=== PATIENT | female | born 1935 | race Caucasian/White ===

== ENCOUNTER 2018-03-16 22:11 | Observation (INO) | payer OTHER ==
--- NOTE | 2018-03-16 22:24 | PDOC ---
History of Present Illness - General History Source: Patient - History of Present Illness Initial Comments: 03/16/18 22:19 The patient is an 81 year old female with a PMH of HTN, Breast CA and 6 month h/ o of forgetfulness BIBEMS with son for a c/o fall with AMS. Son in law and daughter @ bedside assist in history. State patient has been complaining of feeling lightheaded for 1 week. This morning patient called daughter and stated she fell overnight. Patient told daughter she fell last night while getting up from bed to get some water. Patient states knocked over a lamp and spilled water and was able to clean up the spill and went back to bed. Patient' s daughter took patient to urgent care where patient was told to drink more water. Patient was then went to son in law's house and was at baseline. When son in law dropped patient at home, patient suddenly started to fall backwards, son in law caught patient. Patient was noted to have upper extremity and facial tremors and was unable to self-identify (baseline). Son in law called 911. En route patient returned to baseline. At presentation patient has no active medical complaints besides a 1 week h/o of lightheadedness. Patient denies chest pain, shortness of breath. Patient denies abdominal pain, nausea/vomiting, diarrhea/constipation, dysuria/ hematuria. Patient numbness, tingling. NKDA Surgical: Breast CA resection Social: denies toxic habits PMD: Dr. Ann As per EMR, patient has not been evaluated at our facility on prior occasion. <Sydnie Garay - Last Filed: 03/17/18 20:07> <Cherry Toney - Last Filed: 03/18/18 00:06> - General Stated Complaint: SICK Time Seen by Provider: 03/16/18 22:13 Past History <Sydnie Garay - Last Filed: 03/17/18 20:07> <Cherry Toney - Last Filed: 03/18/18 00:06> - Past Medical History Allergies/Adverse Reactions: Allergies Allergy/AdvReac Type Severity Reaction Status Date / Time No Known Allergies Allergy Verified 03/16/18 23:05 Home Medications: Ambulatory Orders Amlodipine Besylate [Norvasc -] 5 mg PO DAILY 03/17/18 Losartan/Hydrochlorothiazide [Losartan-Hctz 100-25 mg Tab] 1 tab PO DAILY *Physical Exam - Vital Signs Last Vital Signs Temp Pulse Resp BP Pulse Ox 97.6 F 91 H 18 122/62 96 03/17/18 22:00 03/17/18 22:00 03/17/18 22:00 03/17/18 22:00 03/17/18 09:00 - Physical Exam Comments: 03/18/18 00:05 SEE BOTTOM OF CHART FOR P.E. <Cherry Toney - Last Filed: 03/18/18 00:06> Moderate Sedation - Procedure Monitoring Vital Signs: Procedure Monitoring Vital Signs Temperature 97.6 F 03/17/18 22:00 Pulse Rate 91 H 03/17/18 22:00 Respiratory Rate 18 03/17/18 22:00 Blood Pressure 122/62 03/17/18 22:00 O2 Sat by Pulse Oximetry (%) 96 03/17/18 09:00 <Cherry Toney - Last Filed: 03/18/18 00:06> Heart Score/ECG Review - History History: Slightly suspicious - Electrocardiogram EKG: Normal - Age Age: >/= 65 - Risk Factors Risk Factors Heart Score: Yes Hx Hypertension Based on the list above the patient has:: 1-2 risk factors - Troponin Troponin: </= normal limit (NSR HR 98, with RBB (c/w previous ECG in 2012); no MULUGETA/STD/TWI) - Score Heart Score - Total: 3 <Sydnie Garay - Last Filed: 03/17/18 20:07> ED Treatment Course - LABORATORY CBC & Chemistry Diagram: 03/16/18 22:45 03/16/18 22:45 - RADIOLOGY Radiology Studies Ordered: Category Date Time Status CHEST X-RAY PORTABLE* [RAD] Stat Radiology 03/16/18 22:15 Ordered <Sydnie Garay - Last Filed: 03/17/18 20:07> - LABORATORY CBC & Chemistry Diagram: 03/17/18 06:00 03/17/18 06:00 - ADDITIONAL ORDERS Additional order review: 03/16/18 22:45 Blood Culture - Preliminary Blood - Peripheral Venous NO GROWTH OBTAINED AFTER 24 HOURS, INCUBATION TO CONTINUE FOR 4 DAYS. 03/16/18 22:40 Blood Culture - Preliminary Blood - Peripheral Venous NO GROWTH OBTAINED AFTER 24 HOURS, INCUBATION TO CONTINUE FOR 4 DAYS. 03/16/18 22:45 RBC 4.42 MCV 83.3 MCHC 33.5 RDW 12.9 MPV 8.0 Neutrophils % 87.5 H Lymphocytes % 2.1 L Monocytes % 9.9 Eosinophils % 0.3 Basophils % 0.2 - RADIOLOGY Radiology Studies Ordered: Category Date Time Status HEAD CT WITHOUT CONTRAST [CT] Stat CT Scan 03/16/18 22:14 Completed - Medications Given in the ED: ED Medications Discontinued Medications Generic Name Dose Route Start Last Admin Trade Name Freq PRN Reason Stop Dose Admin Aspirin 324 mg 03/17/18 01:46 03/17/18 02:31 Asa - PO 03/17/18 01:47 324 mg ONCE ONE Administration Folic Acid 1 mg/ Thiamine HCl 1,000 mls @ 125 mls/hr 03/17/18 00:01 03/17/18 00:27 100 mg/ Multivitamins/Minerals IVPB 03/17/18 08:00 125 mls/hr 10 ml/ Sodium Chloride ONCE ONE Administration Sodium Chloride 1,000 mls @ 50 mls/hr 03/17/18 02:00 03/17/18 02:31 Normal Saline - IV 50 mls/hr ASDIR FELY Administration Potassium Chloride 10 meq in 100 mls @ 100 mls/hr 03/17/18 13:15 03/17/18 16: 00 Potassium Chloride 10 Meq Premix Ivpb - IVPB 03/17/18 15:14 100 mls/hr Q60M FELY Administration Rosuvastatin Calcium 40 mg 03/17/18 02:15 03/17/18 02:31 Crestor - PO 03/17/18 02:16 Not Given ONCE ONE Sodium Chloride 1,000 ml 03/16/18 22:49 03/16/18 23:00 Normal Saline - IV 03/16/18 22:50 1,000 ml ONCE ONE Administration <Cherry Toney - Last Filed: 03/18/18 00:06> Medical Decision Making - Medical Decision Making 03/16/18 22:24 81 year old female BIBEMS for resolved AMS and s/p fall. VS unremarkable. Patient transferred to CT scan. Frontal diagnosis: TIA, electrolyte abnormality , r/o ACS, hypothyroidism, dehydration. Will obtain head CT as well as AMS labs. Reassess. 03/16/18 23:26 On exam, patient has sacral tenderness My read of Head CT shows no acute brain bleed/no ischemia. Patient resting comfortably Na 128 - will administer additional 1 L IV NS - no seizures, possibly confusion 2/2 to hyponatremia BNP 1572 - no previous BNP in system Troponin (-) ECG non-ischemic as documented in ECG section of EMR. 03/17/18 01:[address] negative My read of sacral XR shows retained stool w/o any L/S fracture VSS 03/17/18 01:24 Case d/w Dr. Cavazos, patient admitted to [facility] obs for further evaluation including cardiac and neurologic evaluation. Repeat Na pending 2 L IV NS Clinical Impression: AMS 2/2 Hyponatremia vs. TIA - more likely TIA given resolution of symptoms <Sydnie Garay - Last Filed: 03/17/18 20:07> *DC/Admit/Observation/Transfer - Discharge Dispostion Decision to Admit order: Yes <Sydnie Garay - Last Filed: 03/17/18 20:07> <Cherry Toney - Last Filed: 03/18/18 00:06> Diagnosis at time of Disposition: Fall - Discharge Dispostion Condition at time of disposition: Fair Addendum entered and electronically signed by Sydnie Garay, RESIDENT 03/17/18 20:11: Progress Note - Progress Note Progress Note: General: awake, verbal HEENT: No visible lesions/hematoma, no periorbital ecchymosis, no mastoid ecchymosis, no bulging/erythematous TM CV: S1/S2, no edema, no JVD Respiratory: CLTA B/L, no wheeze/crackles Integumentary: no ulcers/rash Neuro: no focal neurologic deficit noted on exam, patient A&O x1 (baseline)
--- NOTE | 2018-03-16 22:37 | PDOC ---
Attending Attestation - [facility] HPI: 03/16/18 23:12 The patient is a 82 year old female, with a significant past medical history of HTN, who presents to the emergency department s/p near syncope. As per patient s son, she was evaluated in urgent care earlier today and was discharged with a negative workup after a fall yesterday and complaints of weakness/dizziness for a week. Patients son notes she came over to his house after not eating much during the day and had an episode of near syncope at which time he caught him before hitting the floor. The episode occurred at 9:15pm. While in the ER patient is alert and oriented to person, place, and time. She denies recent fevers, chills, or headache. She denies recent nausea, vomit, diarrhea or constipation. She denies recent dysuria, frequency, urgency or hematuria. She denies recent chest pain or shortness of breath. Social history: Nonsmoker. Denies EtOH use and recreational drug use. Primary Care Physician: Dr. Ann - Physicial Exam PE: 03/16/18 23:12 GENERAL: Awake, alert, and fully oriented, in no acute distress HEAD: No signs of trauma EYES: PERRLA, EOMI, sclera anicteric, conjunctiva clear +ENT: L ear increased cerumen, Auricles normal inspection, hearing grossly normal, nares patent, oropharynx clear without exudates. Moist mucosa NECK: Normal ROM, supple, no lymphadenopathy, JVD, or masses LUNGS: Breath sounds equal, clear to auscultation bilaterally. No wheezes, and no crackles HEART: Regular rate and rhythm, normal S1 and S2, no murmurs, rubs or gallops ABDOMEN: Soft, nontender, normoactive bowel sounds. No guarding, no rebound. No masses EXTREMITIES: Normal range of motion, no edema. No clubbing or cyanosis. No cords, erythema, or tenderness NEUROLOGICAL: Alert, awake, appropriate. Cranial nerves 2-12 intact. No deficits to light touch and temperature in face, upper extremities and lower extremities. No motor deficits in the in face, upper extremities and lower extremities. No pronator drift. Normoreflexic in the upper and lower extremities. Normal speech. Toes are down-going bilaterally. Gait is normal without ataxia. SKIN: Warm, Dry, normal turgor, no rashes or lesions noted. <Desi Scruggs - Last Filed: 03/16/18 23:12> - Resident Resident Name: Sydnie Garay - ED Attending Attestation I have performed the following: I have examined & evaluated the patient, The case was reviewed & discussed with the resident, I agree w/resident's findings & plan - Medical Decision Making 03/16/18 22:55 Patient Name: ANAND KAUR THIS IS A PRELIMINARY REPORT FROM [facility]AGING SCREW MACHINE OPERATOR [facility] TYPE EXAM: CT Head wo IMAGES: 138 EXAM DATE AND TIME: 2018-03-16 22:22:16 HISTORY: 81 year old woman: Acute stroke. COMPARISON: None TECHNIQUE: Non-contrast axial images were obtained. Coronal and sagittal images were also generated. FINDINGS: The sulci and ventricles are mildly prominent suggesting mild age related involutional changes. There are no intracranial hemorrhages, extra-axial fluid collections or evidence of an intra-axial mass lesion. There is no clear evidence of chronic ischemic demyelination. Cerebral chambers/white matter differentiation is preserved, without clear evidence of an acute ischemic lesion at this time. Orbital and petrous structures, cerebellopontine angles, and posterior fossa appear unremarkable. The paranasal and mastoid sinuses are clear. IMPRESSION: Mild age related involutional changes. The study is otherwise unremarkable. No evidence of acute or chronic ischemic change at this time. No intracranial hemorrhages, extra-axial fluid collections or intra-axial mass lesion. 03/17/18 03:09 Pt has hyponatremia and low chloride. Pt was given 1L nSS bolus and a banana bag. She will be admitted for syncope and hyponatremia. Rest of labs are ok. BNP slight elevation. <Cherry Toney - Last Filed: 03/17/18 03:10> Heart Score/ECG Review - ECG Intrepretation Rhythm: Regular Rhythm - QRS Widened: RBBB (Left Anterior fascicular block) <Cherry Toney - Last Filed: 03/17/18 03:10> Attestations - Attestations 03/16/18 23:13 Documentation prepared by Desi Scruggs, acting as certified medical technician assistant for Cherry Toney MD. <Desi Scruggs - Last Filed: 03/16/18 23:12>
[2018-03-16] MEDS ORDERED: SODIUM CHLORIDE 0.9% 500 ML INFUS.BAG IV ONE (22:49)
[2018-03-16 22:54] VITALS: BMI 27.4
[2018-03-16 23:24] LABS: BASO % 0.2 % (0-2.0); EOS % 0.3 % (0-4.5); HEMATOCRIT 36.8 % (32.4-45.2); HEMOGLOBIN 12.3 GM/dL (10.7-15.3); LYMPH % 2.1 % (8-40); MCH 27.9 pg (25.7-33.7); MCHC 33.5 g/dl (32.0-36.0); MEAN CELL VOLUME 83.3 fl (80-96); MONO % 9.9 % (3.8-10.2); NEUT % 87.5 % (42.8-82.8); PLATELET COUNT 261 K/MM3 (134-434); RBC 4.42 M/mm3 (3.60-5.2); RDW 12.9 % (11.6-15.6); WHITE BLOOD COUNT 12.1 K/mm3 (4.0-10.0)
[2018-03-16 23:49] LABS: ALBUMIN 3.8 g/dl (3.4-5.0); ALK PHOS 75 U/L (45-117); ANION GAP 12 MMOL/L (8-16); BLOOD UREA NITROGEN 35 mg/dL (7-18); CHLORIDE 90 mmol/L (98-107); CO2 27 mmol/L (21-32); CREATININE 1.2 mg/dL (0.55-1.3); GLUCOSE,RANDOM 162 mg/dL (74-106); N-TERMINAL BNP 1572.4 pg/ml (5-450); POTASSIUM 3.5 mmol/L (3.5-5.1); SGOT/AST 34 U/L (15-37); SGPT/ALT 29 U/L (13-61); SODIUM 128 mmol/L (136-145); TOT PROT 8.1 g/dl (6.4-8.2)
[2018-03-17] MEDS ORDERED: FOLIC ACID INJECTION - 1 MG, THIAMINE HCL 100 MG, MULTIVIT INJECTION ADULT 10 ML in SOD... IVPB ONE (00:01)
--- NOTE | 2018-03-17 00:23 | PN ---
Teaching Attending Note Name of Resident: Adry De Leon ATTENDING PHYSICIAN STATEMENT I saw and evaluated the patient. I reviewed the resident's note and discussed the case with the resident. I agree with the resident's findings and plan as documented. SUBJECTIVE: Patient is an 81 year old woman with a PMH of HTN, Breast CA and 6 month history of forgetfulness brought by EMS with family for a complaint of fall with AMS. Patient has been complaining of feeling lightheaded for 1 week. This morning patient called daughter and stated she fell last night while getting up from bed to get some water. Patient states knocked over a lamp and spilled water and was able to clean up the spill and went back to bed. Patient's daughter took patient to Urgent Care where patient was told to drink more water. Patient went to son in law's house and was at baseline. When son in law dropped patient at home, patient suddenly started to fall backwards,and son in law caught patient. Patient was noted to have upper extremity and facial tremors and was unable to self-identify (baseline). Her only complaint now is back pain. OBJECTIVE: Alert Vital Signs Period Temp Pulse Resp BP Sys/[place] Pulse Ox Last 24 Hr 98.1 F 86 18 136/72 100 HEENT: No Jaundice, eye redness or discharge, PERRLA, EOMI. Normocephalic, atraumatic. External ears are normal and hearing is grossly intact. No nasal discharge. Neck: Supple, nontender. No palpable adenopathy or thyromegaly. No JVD Chest: Good effort. Clear to auscultation and percussion. Heart: Regular. No S3, rub or murmur Abdomen: Not distended, soft, nontender and no HSM. No rebound or guarding. Normoactive bowel sounds. Ext: Peripheral pulses intact. No leg edema. Skin: Warm and dry. Sacral tenderness. No petechiae, rash or ecchymosis. Neuro: Alert. Oriented x3. CN 2-12 grossly intact. Sensation grossly intact in all four extremities and DTR are symmetric. Current Medications Generic Name Dose Route Start Last Admin Trade Name Freq PRN Reason Stop Dose Admin Folic Acid 1 mg/ Thiamine HCl 1,000 mls @ 125 mls/hr 03/17/18 00:01 100 mg/ Multivitamins/Minerals IVPB 03/17/18 08:00 10 ml/ Sodium Chloride ONCE ONE Abnormal Lab Results 03/16/18 03/16/18 22:45 22:45 WBC 12.1 H Absolute Neuts (auto) 10.6 H Neutrophils % 87.5 H Lymphocytes % 2.1 L Sodium 128 L Chloride 90 L BUN 35 H Random Glucose 162 H B-Natriuretic Peptide 1572.4 H ASSESSMENT AND PLAN: 1. Fall/Syncope - Etiology unclear. The combination of preceding "viral-like" illness, poor oral intake and enhanced diuresis from HCTZ may be the culprit. NIHSS was 2. No acute pathology on head CT, CXR and EKG. Admit to telemetry, hydrate gently, hold HCTZ, check TSH, electrolytes, ECHO, carotid doppler, fasting lipids and brain MRI. Consult neurology and PT. Get swallow evaluation and implement fall/aspiration precautions and neurochecks. Patient lives alone. Most important, with recent worsening forgetfulness and falls, social work assessment is warranted to discuss her living situation with patient and family. 2. DVT prophylaxis - Lovenox 40 mg SQ q 24 hours. 3. Advance directives - Full code
[2018-03-17] MEDS ORDERED: ASPIRIN 81 MG CHEWABLE TABLETS PO ONE (01:46)
[2018-03-17] MEDS ORDERED: SODIUM CHLORIDE 1,000 ML IV SCH (02:00)
--- NOTE | 2018-03-17 02:13 | HP ---
CHIEF COMPLAINT: Passed out PCP: Dr. Ann HISTORY OF PRESENT ILLNESS: 82 y/o F with PMHx of HTN, Breast Ca was BIBEMS for AMS. The patients daughter was present at bedside and provided most of the history. Saturday night, the patient began to feel weakness, Dizziness, and Bone Aches. The Family believed this could be the Flu and instructed the patient to rest. The symptoms did not improve and on Saturday, the Family accompanied the patient to an Urgent care where she was told to Rest and drink fluids. Patient felt "shakey" and cold upon arriving home. While standing up after eating dinner, the patient fainted suddenly, was caught by her son in law and eased to the ground. The patient lost consciousness briefly (unclear for how long) and her hands began to tremor. The patient woke shortly after and at this time the family called EMS. Daughter denies any loss of bowel or bladder control. The patient mentions a similar episode of LOC suddenly during her 50's however she awoke suddenly and did not visit a physician for evaluation. The patient additionally mentions that she had a fall Saturday night, however the details of this incident are unclear. Although the patient answers, the daughter at bedside mentions that the story has changed multiple times and the details are unclear. Patient denies any recent medication changes. Her family is very involved in her care and patient is adamant that she is independent in all daily activities. Additionally, family endorses the patient has had decreased PO intake recently, Chills, and a metallic taste in her mouth. During my interview, the tremors have resolved and the patient had no complaints. Denies any accompanying fevers, chest pain, SOB, nausea ,vomiting, diarrhea, constipation, numbness, tingling, weakness, palpitations, headaches. Recent Travel: Denies PAST MEDICAL HISTORY: HTN, Breast Ca (s/p R Mastectomy 1985) PAST SURGICAL HISTORY: R Mastectomy (1985) Venous procedure Social History: Smoking: Denies Alcohol: Denies Drugs: Denies Occupation: Sales (Retired 2015) Ambulation: Without assitance Residence: Lives alone at home, No Home health aide, Family routinely checks in Family History: Father: Dementia Allergies No Known Allergies Allergy (Verified 03/16/18 23:05) HOME MEDICATIONS: Home Medications Medication Instructions Recorded Amlodipine Besylate [Norvasc -] 5 mg PO DAILY 03/17/18 Losartan/Hydrochlorothiazide 1 tab PO DAILY 03/17/18 [Losartan-Hctz 100-25 mg Tab] REVIEW OF SYSTEMS As per HPI PHYSICAL EXAMINATION Vital Signs - 24 hr 03/16/18 22:52 Temperature 98.1 F Pulse Rate 86 Respiratory 18 Rate Blood Pressure 136/72 O2 Sat by Pulse 100 Oximetry (%) ORTHOSTATICS: Supine 103/53 HR 77, Sitting 114/63 HR 87, Standing 117/95 HR 85 GENERAL: A&Ox3, NAD HEAD: NCAT EYES: PERRL, EOMI EARS, NOSE, THROAT: Oropharynx clear without exudates. Moist mucous membranes. NECK: No JVD LUNGS: CTA b/l, No wheezes, no crackles HEART: Regular rate and rhythm, normal S1 and S2 without murmur ABDOMEN: Soft, nontender, not distended, + bowel sounds, no guarding MUSCULOSKELETAL: No bony deformities or tenderness. EXTREMITIES: 2+ pulses, Trace peripheral edema. NEUROLOGICAL: NIHSS 2, Cranial nerves II-XII intact. Normal speech. Normal gait. Gross sensation intact throughout. 4/5 muscle strength to handgrip, elbow flexion/extension, Hip Flexion, Plantarflexion, dorsiflexion. No dysmetria, No dyskinesia. PSYCHIATRIC: Cooperative. Good eye contact. SKIN: Warm, dry Laboratory Results - last 24 hr 03/16/18 03/16/18 03/16/18 22:45 22:45 22:45 WBC 12.1 H RBC 4.42 Hgb 12.3 Hct 36.8 MCV 83.3 MCH 27.9 MCHC 33.5 RDW 12.9 Plt Count 261 MPV 8.0 Absolute Neuts (auto) 10.6 H Neutrophils % 87.5 H Lymphocytes % 2.1 L Monocytes % 9.9 Eosinophils % 0.3 Basophils % 0.2 Nucleated RBC % 0 Sodium 128 L Potassium 3.5 Chloride 90 L Carbon Dioxide 27 Anion Gap 12 BUN 35 H Creatinine 1.2 Creat Clearance w eGFR 42.80 Random Glucose 162 H Lactic Acid 1.4 Calcium 9.0 Total Bilirubin 1.0 AST 34 ALT 29 Alkaline Phosphatase 75 Creatine Kinase 171 Creatine Kinase Index 1.8 CK-MB (CK-2) 3.2 Troponin I < 0.02 B-Natriuretic Peptide 1572.4 H Total Protein 8.1 Albumin 3.8 TSH 3.68 Blood Type Antibody Screen 03/16/18 03/17/18 22:45 00:27 WBC RBC Hgb Hct MCV MCH MCHC RDW Plt Count MPV Absolute Neuts (auto) Neutrophils % Lymphocytes % Monocytes % Eosinophils % Basophils % Nucleated RBC % Sodium Potassium Chloride Carbon Dioxide Anion Gap BUN Creatinine Creat Clearance w eGFR Random Glucose Lactic Acid Calcium Total Bilirubin AST ALT Alkaline Phosphatase Creatine Kinase Creatine Kinase Index CK-MB (CK-2) Troponin I B-Natriuretic Peptide Total Protein Albumin TSH Blood Type A POSITIVE A POSITIVE Antibody Screen Negative ASSESSMENT/PLAN: 82 y/o F with PMHx of HTN, Breast Ca was BIBEMS for Syncopal episode #Syncopal Episode -Unclear etiology but will need to rule out TIA -EKG: Sinus rhythm with PAC's, RBBB, VR 98, QTc 505 -Head CT: Mild Age related involutional changes, Otherwise unremarkable -CXR: No infiltrates or effusions on my read; pending official read -Carotid Dopplers, Echo, Brain MRI w/o contrast ordered -Neurology (Dr. Sesay) Consulted -ASA 324mg, Crestor 40mg -Orthostatics noted above -Monitor on Tele -Fall precautions -Speech and Swallow, PT Consulted -NPO -Lipid Panel, A1c, TSH ordered -NS @ 50 mls/hr #HTN -Continue home dose Amlodipine, Losartan -Home dose HCTZ held #FEN -NS @ 50 mls/hr -Continue to monitor for Hyponatremia -NPO pending speech and swallow eval #PPx -DVT: Lovenox Dispo: Tele-Obs, Meds reconcilled Visit type - Emergency Visit Emergency Visit: Yes ED Registration Date: 03/17/18 Care time: The patient presented to the Emergency Department on the above date and was hospitalized for further evaluation of their emergent condition. - New Patient This patient is new to me today: Yes Date on this admission: 03/17/18 - Critical Care Critical Care patient: No
[2018-03-17] MEDS ORDERED: ROSUVASTATIN CA 20 MG TABLET (FP) PO ONE (02:15)
[2018-03-17] MEDS ORDERED: ASPIRIN 81 MG CHEWABLE TABLETS ONE (02:25)
[2018-03-17 06:57] LABS: BASO % 0.3 % (0-2.0); EOS % 0.4 % (0-4.5); HEMATOCRIT 28.9 % (32.4-45.2); HEMOGLOBIN 9.9 GM/dL (10.7-15.3); LYMPH % 5.7 % (8-40); MCH 28.3 pg (25.7-33.7); MCHC 34.2 g/dl (32.0-36.0); MEAN CELL VOLUME 82.6 fl (80-96); MONO % 11.6 % (3.8-10.2); PLATELET COUNT 207 K/MM3 (134-434); RBC 3.49 M/mm3 (3.60-5.2); RDW 12.8 % (11.6-15.6); WHITE BLOOD COUNT 8.3 K/mm3 (4.0-10.0)
[2018-03-17 07:03] LABS: INR 1.18 (0.83-1.09); PROTHROMBIN TIME (PATIENT) 13.9 SEC (9.7-13.0)
[2018-03-17 08:03] LABS: ALBUMIN 2.7 g/dl (3.4-5.0); ALK PHOS 52 U/L (45-117); ANION GAP 9 MMOL/L (8-16); BILIRUBIN,TOTAL 0.4 mg/dL (0.2-1); BLOOD UREA NITROGEN 26 mg/dL (7-18); CALCIUM 8.3 mg/dL (8.5-10.1); CHLORIDE 99 mmol/L (98-107); CHOLESTEROL 139 mg/dL (50-200); CO2 27 mmol/L (21-32); CREATININE 0.8 mg/dL (0.55-1.3); GLUCOSE,RANDOM 139 mg/dL (74-106); HDL CHOLESTEROL 39 mg/dL (40-60); SGOT/AST 21 U/L (15-37); SGPT/ALT 22 U/L (13-61); SODIUM 135 mmol/L (136-145); TOT PROT 5.7 g/dl (6.4-8.2); TRIGLYCERIDES 57 mg/dL (0-150)
[2018-03-17] MEDS ORDERED: HYDROCHLOROTHIAZIDE 12.5 MG CAPSULE (FP) PO SCH (10:00)
[2018-03-17] MEDS: LOSARTAN POTASSIUM 50 MG TABLET (FP) PO SCH (10:59)
[2018-03-17] MEDS: ENOXAPARIN NA (PORCINE) 40 MG/0.4 ML DISP.SYRIN SQ SCH (10:59)
[2018-03-17] MEDS: amLODIPine BESYLATE 5 MG TABLET (FP) PO SCH (10:59)
--- NOTE | 2018-03-17 11:13 | CONSULT ---
Admitting History and Physical - Admission History Source: Patient, Family Member Limitations to Obtaining History: No Limitations - Smoking History Smoking history: Never smoked Have you smoked in the past 12 months: No - Alcohol/Substance Use Hx Alcohol Use: No History - Admission Reason For Visit: FALL - Diagnostics X-ray: Report Reviewed CT Scan: Report Reviewed - General Mental Status: Alert and Oriented, Awake and Alert, Able to Follow Commands Attention: Intact Ability to Follow Directions: Good Head/Neck Control: WFL - Hearing Hearing: Normal Speech Evaluation - Communication Primary Language: [place] Secondary Language: CZECH (fluent) Communication: Yes: Within Normal Limits Oral Expression Ability: Yes: No Impairment - Speech Production Able to Make Needs Known: Yes: WNL Intelligibility: Yes: WNL - Speech Characteristics Voice Loudness: Normal Voice Pitch: Yes: Normal Voice Phonatory-based Quality: Yes: Normal Speech Pattern: Normal Speech Clarity: < 100% Nasal Resonance: Normal Articulation: Yes: Precise Rate of Speech: Intact - Language/Auditory Comprehension Follows: Yes: 1 Stage Simple Commands - Language/Verbal Expression Aphasia: Yes: Anomia (occasional circumlocution. 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 Memory: Yes: WNL Short Term Memory: Yes: WNL - Swallow Evaluation/Bedside Assessment Current Nutritional Intake: NPO Oral Secretions: Yes: WFL Dentition: Yes: Adequate Facial Symmetry at Rest: Symmetrical Facial Symmetry on Retraction: Symmetrical Facial Movement: Controlled Sensation: Normal Against Resistance Opening: Normal Against Resistance Closing: Normal Pucker Lips: Normal Smile: Normal Lingual Movement: Normal, Symmetric Lingual Speed of Movement: Normal Lingual Movement Strgth Against Opposition: Normal Lingual Movement Characteristics: Normal Velopharyngeal Movement: Normal Laryngeal Elevation: WFL Laryngeal Movement: Able to Palpate Rate of Intake: WFL Bolus Size: WFL Labial Seal: WFL Chewing: WFL Oral Prep Time: WFL A-P Transit: WFL Pocketing: None Timing of Swallow: WFL Coughing/Throat Clear: No Change in Voice: No Recommendations - Speech Evaluation, Impression/Plan Impression: Speech,language,swallowing, cognition grossly intact. Pt has been cooking less for herself, with daughter reporting possible reduced nutitional support. Pt lives alone. - Disposition Discharge to: To be Determined - Dysphagia Impressions/Plan Swallowing Skills: WFL Dysphagia Impressions: No Impairment *Silent aspiration: cannot be R/O at bedside Recommendations: Other ( re: Meals on wheels? Family providing meals? reviewed with pt's daughter.) - Recommendations Diet Consistency: Regular Medication Administration: Whole with water Supplement: Ensure, Magic Cup
--- NOTE | 2018-03-17 13:09 | PN ---
Progress Note, Physician Chief Complaint: Pt sitting in bed in no acute distress. reports feeling better. denies any chest pain, sob, n/v/d. daughter at bedside - Current Medication List Current Medications: Active Medications Amlodipine Besylate (Norvasc -) 5 mg PO DAILY [facility] Last Admin: 03/17/18 10:59 Dose: 5 mg Enoxaparin Sodium (Lovenox -) 40 mg SQ DAILY [facility] Last Admin: 03/17/18 10:59 Dose: 40 mg Sodium Chloride (Normal Saline -) 1,000 mls @ 50 mls/hr IV ASDIR [facility] Last Admin: 03/17/18 02:31 Dose: 50 mls/hr Losartan Potassium (Cozaar -) 100 mg PO DAILY [facility] Last Admin: 03/17/18 10:59 Dose: 100 mg - Objective Vital Signs: Vital Signs Temperature 98.0 F 03/17/18 11:10 Pulse Rate 80 03/17/18 11:10 Respiratory Rate 18 03/17/18 11:10 Blood Pressure 117/67 03/17/18 11:10 O2 Sat by Pulse Oximetry (%) 98 03/17/18 04:16 Constitutional: Yes: Well Nourished, No Distress, Calm Cardiovascular: Yes: Regular Rate and Rhythm Respiratory: Yes: WNL, Regular, CTA Bilaterally. No: Accessory Muscle Use, SOB , Tachypnea, Wheezes Gastrointestinal: Yes: WNL, Normal Bowel Sounds, Soft. No: Distention, Tenderness Genitourinary: Yes: WNL Extremities: Yes: WNL Edema: No Neurological: Yes: WNL, Alert, Oriented Psychiatric: Yes: WNL, Alert, Oriented Labs: CBC, BMP 03/17/18 06:00 03/17/18 06:00 INR, PTT INR 1.18 (0.83-1.09) H 03/17/18 06:00 Problem List - Problems (1) Syncope Assessment/Plan: syncopal episode at home pt unable to report whether prodromal symptoms reduced po intake over last couple of day suspect possible vasovagal, 2/2 dehydration MRI- brain without acute findings echo- nl lvef, grade 2 diastolic dysfunction carotids/orthostatics pending UA/UC/BC pending PT eval cardiology/neuro consult pending Code(s): R55 - SYNCOPE AND COLLAPSE Qualifiers: Encounter type: initial encounter (2) Hyponatremia Assessment/Plan: improved ivf, po intake monitor Code(s): E87.1 - HYPO-OSMOLALITY AND HYPONATREMIA (3) ANDREW (acute kidney injury) Assessment/Plan: improving IVF encourage po intake Code(s): N17.9 - ACUTE KIDNEY FAILURE, UNSPECIFIED (4) Hypokalemia Assessment/Plan: suspect 2/2 reduced po intake kcl 40meq bid kcl iv 10meq x2 monitor bmp Code(s): E87.6 - HYPOKALEMIA (5) HTN (hypertension) Assessment/Plan: controlled continue home meds Code(s): I10 - ESSENTIAL (PRIMARY) HYPERTENSION Qualifiers: Hypertension type: essential hypertension Qualified Code(s): I10 - Essential (primary) hypertension (6) Elevated WBCs Assessment/Plan: resolved infectious etiology unlikely suspect 2/2 dehydration Code(s): D72.829 - ELEVATED WHITE BLOOD CELL COUNT, UNSPECIFIED
[2018-03-17] MEDS: KCL 10 MEQ IVPB 10 MEQ/100 ML INFUS.BAG IVPB SCH ×2 (13:33→16:00)
[2018-03-17] MEDS: POTASSIUM CHLORIDE ORAL LIQUID 20 MEQ/15 ML PO SCH ×2 (13:33→21:03)
[2018-03-17] MEDS: POLYETHYLENE GLYCOL 3350 119 GM BTL PO SCH (13:33)
--- NOTE | 2018-03-17 13:51 | ECHO ---
Name: HAYESESA Exam:Adult Echocardiogram Study Date: 03/17/2018 08:25 AM Age: 82 yrs Reason For Study: TIA Height: 63 in Weight: 155 lb BSA: 1.7 m2 MMode/2D Measurements & Calculations IVSd: 1.1 cm Ao root diam: 2.7 cm LVIDd: 3.5 cm LA dimension: 3.0 cm LVIDs: 2.1 cm LVPWd: 1.2 cm EDV(Teich): 49.4 ml LVOT diam: 2.0 cm ESV(Teich): 15.2 ml LAV (MOD-bp): 56.0 ml Doppler Measurements & Calculations MV E max angel: 108.0 cm/sec AI P1/2t: 444.0 msec MV A max angel: 75.7 cm/sec MV E/A: 1.4 MV dec time: 0.11 sec AI max angel: 337.3 cm/sec MR max angel: 504.1 cm/sec AI max P.5 mmHg MR max P.1 mmHg AI dec slope: 222.5 cm/sec2 TR max angel: 225.7 cm/sec Med Peak E' Angel: 6.0 cm/sec TR max P.4 mmHg Med E/e': 18.0 Lat Peak E' Angel: 7.8 cm/sec Lat E/e': 13.8 Procedure The study was technically adequate with some images being suboptimal in quality. Left Ventricle The left ventricular size, thickness and function are normal. Diastolic dysfunction, Grade II, consis tent with elevated left atrial pressure. Right Ventricle The right ventricle is normal in size and function. Atria Normal left and right atrial size and function. Mitral Valve The mitral valve is normal in structure and function. There is mild mitral regurgitation. Tricuspid Valve The tricuspid valve is normal in structure and function. Right ventricular systolic pressure is 25 mm hg. There is mild tricuspid regurgitation. Aortic Valve There is moderate aortic sclerosis.;. No hemodynamically significant valvular aortic stenosis. Mild a ortic regurgitation. Pulmonic Valve The pulmonic valve is normal in structure and function. Great Vessels The aortic root is normal size. Pericardium/Pleura There is no pericardial effusion. Interpretation Summary The left ventricular size, thickness and function are normal Diastolic dysfunction, Grade II, consistent with elevated left atrial pressure. There is moderate aortic sclerosis.; León Astudillo 03/17/2018 01:51 PM
--- NOTE | 2018-03-17 14:16 | CON.CARD ---
Consult Consult Specialty:: Cardiology Referred by:: Mike Reason for Consultation:: syncope, diastolic dysfunction - History of Present Illness Chief Complaint: syncope History of Present Illness: 82F h/o HTN, breast cancer p/w weakness, dizziness, acheiness, syncope. She went to urgent care, was told to drink fluids and rest, then on Saturday night she fainted after standing up after eating dinner, caught by her son and eased to the ground. Has had decreased PO intake recently. No chest pain, palps, dyspnea, edema. Patient does not recall syncopal episode, feels well today, no complaints. - Alcohol/Substance Use Hx Alcohol Use: No - Smoking History Smoking history: Never smoked Have you smoked in the past 12 months: No Home Medications - Allergies Allergies/Adverse Reactions: Allergies Allergy/AdvReac Type Severity Reaction Status Date / Time No Known Allergies Allergy Verified 03/16/18 23:05 - Home Medications Home Medications: Ambulatory Orders Amlodipine Besylate [Norvasc -] 5 mg PO DAILY 03/17/18 Losartan/Hydrochlorothiazide [Losartan-Hctz 100-25 mg Tab] 1 tab PO DAILY Family Disease History - Family Disease History Family History: Unremarkable Review of Systems - Review of Systems Constitutional: reports: No Symptoms Eyes: reports: No Symptoms HENT: reports: No Symptoms Neck: reports: No Symptoms Cardiovascular: reports: No Symptoms Respiratory: reports: No Symptoms Gastrointestinal: reports: No Symptoms Genitourinary: reports: No Symptoms Musculoskeletal: reports: No Symptoms Integumentary: reports: No Symptoms Neurological: reports: No Symptoms Endocrine: reports: No Symptoms Hematology/Lymphatic: reports: No Symptoms Psychiatric: reports: No Symptoms Vital Signs: Vital Signs Temperature 98.0 F 03/17/18 11:10 Pulse Rate 80 03/17/18 11:10 Respiratory Rate 18 03/17/18 11:10 Blood Pressure 117/67 03/17/18 11:10 O2 Sat by Pulse Oximetry (%) 98 03/17/18 04:16 Constitutional: Yes: No Distress, Calm Eyes: Yes: Conjunctiva Clear, EOM Intact HENT: Yes: Atraumatic, Normocephalic Neck: Yes: Supple, Trachea Midline Respiratory: Yes: Regular, CTA Bilaterally Gastrointestinal: Yes: Normal Bowel Sounds, Soft Cardiovascular: Yes: Regular Rate and Rhythm JVD: No Carotid Bruit: No PMI: Non-Displaced Heart Sounds: Yes: S1, S2 Musculoskeletal: No: Back Pain Extremities: No: Cold Edema: No Peripheral Pulses WNL: No Peripheral Pulses: 2+ Left Doralis Pedis, 2+ Right Dorsalis Pedis Neurological: Yes: Alert, Oriented Psychiatric: Yes: Alert, Oriented - Other Data Labs, Other Data: CBC, BMP 03/17/18 06:00 03/17/18 06:00 INR, PTT INR 1.18 (0.83-1.09) H 03/17/18 06:00 Troponin, BNP 03/16/18 22:45 Troponin I < 0.02 B-Natriuretic Peptide 1572.4 H Troponin, BNP 03/16/18 22:45 Troponin I < 0.02 B-Natriuretic Peptide 1572.4 H Assessment/Plan EKG: sinus, RBBB, PACs echo 02/2018 LV size, thickness function nl, grade II diastolic dysfunction with elevated LA pressure, moderate aortic sclerosis tele: sinus, PACs syncope - history most likely consistent with vasovagal vs orthostatic - no events on tele - no further cardiac workup at this point diastolic dysfunction grade II - noted on echo - euvolemic on exam - defer diuretics at this point - continue amlodipine, losartan, holding home HCTZ in setting of low Na HTN - stable on amlodipine, losartan holding HCTZ as above
--- NOTE | 2018-03-17 14:31 | EKG ---
Test Reason : Blood Pressure : / mmHG Vent. Rate : 098 BPM Atrial Rate : 098 BPM P-R Int : 168 ms QRS Dur : 132 ms QT Int : 396 ms P-R-T Axes : 065 100 029 degrees QTc Int : 505 ms SINUS RHYTHM WITH PREMATURE ATRIAL COMPLEXES RIGHT BUNDLE BRANCH BLOCK ABNORMAL ECG NO PREVIOUS ECGS AVAILABLE Confirmed by León Astudillo ([id number]) on 03/17/2018 2:30:54 PM Referred By: Confirmed By:León Astudillo
[2018-03-17] MEDS: LORazepam 2 MG/ML SDV VIAL IVPUSH PRN (20:30)
[2018-03-18] MEDS: LORazepam 2 MG/ML SDV VIAL IVPUSH PRN (07:45)
[2018-03-18 07:46] LABS: BASO % 0.5 % (0-2.0); EOS % 1.8 % (0-4.5); HEMATOCRIT 32.8 % (32.4-45.2); LYMPH % 7.3 % (8-40); MCH 27.9 pg (25.7-33.7); MCHC 33.6 g/dl (32.0-36.0); MEAN CELL VOLUME 83.1 fl (80-96); MEAN PLT VOLUME 8.3 fl (7.5-11.1); MONO % 13.3 % (3.8-10.2); NEUT % 77.1 % (42.8-82.8); PLATELET COUNT 256 K/MM3 (134-434); RBC 3.95 M/mm3 (3.60-5.2); RDW 12.9 % (11.6-15.6); WHITE BLOOD COUNT 6.9 K/mm3 (4.0-10.0)
[2018-03-18 08:56] LABS: ANION GAP 6 MMOL/L (8-16); BLOOD UREA NITROGEN 16 mg/dL (7-18); CALCIUM 8.5 mg/dL (8.5-10.1); CHLORIDE 104 mmol/L (98-107); CO2 27 mmol/L (21-32); CREATININE 0.6 mg/dL (0.55-1.3); GLUCOSE,RANDOM 102 mg/dL (74-106); POTASSIUM 4.3 mmol/L (3.5-5.1); SODIUM 137 mmol/L (136-145)
[2018-03-18] MEDS: ENOXAPARIN NA (PORCINE) 40 MG/0.4 ML DISP.SYRIN SQ SCH (09:00)
[2018-03-18] MEDS: POLYETHYLENE GLYCOL 3350 119 GM BTL PO SCH (09:00)
[2018-03-18] MEDS ORDERED: PT OWN MED DRAWER 7, Y5N ONE (09:28)
--- NOTE | 2018-03-18 10:37 | PN ---
Progress Note (short form) - Note Progress Note: s: no chest pain, palps, dizziness, lightheadedness Current Medications Amlodipine Besylate (Norvasc -) 5 mg PO DAILY [facility] Last Admin: 03/17/18 10:59 Dose: 5 mg Enoxaparin Sodium (Lovenox -) 40 mg SQ DAILY [facility] Last Admin: 03/17/18 10:59 Dose: 40 mg Lorazepam (Ativan Injection -) 0.5 mg IVPUSH Q8H PRN PRN Reason: ANXIETY Last Admin: 03/18/18 07:45 Dose: 0.5 mg Losartan Potassium (Cozaar -) 100 mg PO DAILY [facility] Last Admin: 03/17/18 10:59 Dose: 100 mg Polyethylene Glycol (Miralax (For Daily Use) -) 17 gm PO DAILY [facility] Last Admin: 03/17/18 13:33 Dose: 17 gm Potassium Chloride (Potassium Chloride Oral Liquid) 40 meq PO BID [facility] Last Admin: 03/17/18 21:03 Dose: 40 meq Vital Signs: Vital Signs Period Temp Pulse Resp BP Sys/[place] Pulse Ox Last 24 Hr 97.3 F-98.5 F 68-104 18-18 94-126/54-74 95-95 Constitutional: Yes: No Distress, Calm Eyes: Yes: Conjunctiva Clear, EOM Intact HENT: Yes: Atraumatic, Normocephalic Neck: Yes: Supple, Trachea Midline Respiratory: Yes: Regular, CTA Bilaterally Gastrointestinal: Yes: Normal Bowel Sounds, Soft Cardiovascular: Yes: Regular Rate and Rhythm JVD: No Carotid Bruit: No PMI: Non-Displaced Heart Sounds: Yes: S1, S2 Musculoskeletal: No: Back Pain Extremities: No: Cold Edema: No Peripheral Pulses WNL: No Peripheral Pulses: 2+ Left Doralis Pedis, 2+ Right Dorsalis Pedis Neurological: Yes: Alert, Oriented Psychiatric: Yes: Alert, Oriented Assessment/Plan EKG: sinus, RBBB, PACs echo 02/2018 LV size, thickness function nl, grade II diastolic dysfunction with elevated LA pressure, moderate aortic sclerosis tele: sinus, PACs syncope - history most likely consistent with vasovagal vs orthostatic - no events on tele - no further cardiac workup at this point diastolic dysfunction grade II - noted on echo - euvolemic on exam - defer diuretics at this point - continue amlodipine, losartan, holding home HCTZ in setting of low Na HTN - stable on amlodipine, losartan holding HCTZ as above
--- NOTE | 2018-03-18 11:35 | PN ---
Physical Exam: SUBJECTIVE: Patient seen and examined. She is asleep and difficult to arouse after receiving Ativan 0.5mg IV for agitation this morning. OBJECTIVE: Vital Signs Period Temp Pulse Resp BP Sys/[place] Pulse Ox Last 24 Hr 97.3 F-98.5 F 68-104 18-18 94-126/54-74 95-95 GENERAL: The patient is asleep, difficult to arouse, in no acute distress. LUNGS: Breath sounds equal, clear to auscultation bilaterally, no wheezes, no crackles, no accessory muscle use. HEART: Regular rate and rhythm, S1, S2 without murmur, rub or gallop. ABDOMEN: Soft, nondistended, normoactive bowel sounds, no guarding, no rebound, no hepatosplenomegaly, no masses. EXTREMITIES: 2+ pulses, warm, well-perfused, no edema. Laboratory Results - last 24 hr 03/17/18 03/17/18 03/18/18 18:05 20:52 01:38 WBC RBC Hgb Hct MCV MCH MCHC RDW Plt Count MPV Absolute Neuts (auto) Neutrophils % Lymphocytes % Monocytes % Eosinophils % Basophils % Nucleated RBC % Sodium Potassium Chloride Carbon Dioxide Anion Gap BUN Creatinine Creat Clearance w eGFR POC Glucometer 155 Random Glucose Serum Osmolality 279 Calcium Ferritin Vitamin B12 Serum Folate Stool Occult Blood Negative 03/18/18 03/18/18 03/18/18 06:00 06:00 06:00 WBC 6.9 RBC 3.95 Hgb 11.0 Hct 32.8 MCV 83.1 MCH 27.9 MCHC 33.6 RDW 12.9 Plt Count 256 D MPV 8.3 Absolute Neuts (auto) 5.3 Neutrophils % 77.1 Lymphocytes % 7.3 L D Monocytes % 13.3 H Eosinophils % 1.8 D Basophils % 0.5 Nucleated RBC % 0 Sodium 137 Potassium 4.3 Chloride 104 Carbon Dioxide 27 Anion Gap 6 L BUN 16 Creatinine 0.6 Creat Clearance w eGFR > 60 POC Glucometer Random Glucose 102 Serum Osmolality Calcium 8.5 Ferritin 181.4 Vitamin B12 1626 H Serum Folate 35 H Stool Occult Blood Active Medications Generic Name Dose Route Start Last Admin Trade Name Freq PRN Reason Stop Dose Admin Amlodipine Besylate 5 mg 03/17/18 10:00 03/17/18 10:59 Norvasc - PO 5 mg DAILY [facility] Administration Enoxaparin Sodium 40 mg 03/17/18 10:00 03/17/18 10:59 Lovenox - SQ 40 mg DAILY [facility] Administration Lorazepam 0.5 mg 03/17/18 16:16 03/18/18 07:45 Ativan Injection - IVPUSH 0.5 mg Q8H PRN Administration ANXIETY Losartan Potassium 100 mg 03/17/18 10:00 03/17/18 10:59 Cozaar - PO 100 mg DAILY [facility] Administration Polyethylene Glycol 17 gm 03/17/18 13:15 03/17/18 13:33 Miralax (For Daily Use) - PO 17 gm DAILY [facility] Administration Potassium Chloride 40 meq 03/17/18 13:15 03/17/18 21:03 Potassium Chloride Oral Liquid PO 40 meq BID [facility] Administration ASSESSMENT/PLAN: 1. Syncope - Likely vasovagal secondary to dehydration - BUN/creatinine improved with IV fluid - Cardiology consult appreciated - Awaiting neurology consult 2. UTI - Urine culture growing >100,000 gram neg rods - Start ceftriaxone - Follow up identification, sensitivities 3. Acute kidney injury secondary to dehydration - BUN/creatinine improved 4. Hyponatremia - Improved with IV fluid 5. Hypokalemia - Improved 6. HTN - Continue Shelley Lopez Visit type - Emergency Visit Emergency Visit: Yes ED Registration Date: 03/17/18 Care time: The patient presented to the Emergency Department on the above date and was hospitalized for further evaluation of their emergent condition. - New Patient This patient is new to me today: Yes Date on this admission: 03/18/18 - Critical Care Critical Care patient: No - Discharge Referral Referred to [facility] Med P.C.: No
[2018-03-18] MEDS ORDERED: cefTRIAXone SODIUM 1 GM VIAL ONE (12:29)
[2018-03-18] MEDS ORDERED: DEXTROSE 5%-WATER - 50 ML IVPB ONE (12:29)
[2018-03-18] MEDS: CEFTRIAXONE 1 GM in DEXTROSE 5%-WATER - 50 ML IVPB SCH (12:30)
[2018-03-18] MEDS: POTASSIUM CHLORIDE ORAL LIQUID 20 MEQ/15 ML PO SCH ×2 (13:39→21:01)
[2018-03-18] MEDS: amLODIPine BESYLATE 5 MG TABLET (FP) PO SCH (14:07)
[2018-03-18] MEDS: LOSARTAN POTASSIUM 50 MG TABLET (FP) PO SCH (14:07)
[2018-03-19 00:06] LABS: SERUM IRON SATURATION 9 % (15-55); TOTAL IRON BINDING CAPACITY 222 ug/dL (250-450); UIBC 201 ug/dL (118-369)
[2018-03-19 07:42] LABS: BASO % 0.5 % (0-2.0); EOS % 2.8 % (0-4.5); HEMATOCRIT 32.1 % (32.4-45.2); HEMOGLOBIN 10.6 GM/dL (10.7-15.3); MCHC 33.2 g/dl (32.0-36.0); MEAN CELL VOLUME 84.2 fl (80-96); MONO % 11.9 % (3.8-10.2); NEUT % 73.8 % (42.8-82.8); PLATELET COUNT 255 K/MM3 (134-434); RBC 3.81 M/mm3 (3.60-5.2); WHITE BLOOD COUNT 7.6 K/mm3 (4.0-10.0)
[2018-03-19 07:56] LABS: ANION GAP 7 MMOL/L (8-16); BLOOD UREA NITROGEN 16 mg/dL (7-18); CALCIUM 8.4 mg/dL (8.5-10.1); CHLORIDE 106 mmol/L (98-107); CO2 27 mmol/L (21-32); CREATININE 0.7 mg/dL (0.55-1.3); GLUCOSE,RANDOM 103 mg/dL (74-106); POTASSIUM 4.9 mmol/L (3.5-5.1); SODIUM 139 mmol/L (136-145)
--- NOTE | 2018-03-19 10:02 | PN ---
Progress Note (short form) - Note Progress Note: s: no chest pain, palps, dizziness, lightheadedness Current Medications Amlodipine Besylate (Norvasc -) 5 mg PO DAILY [facility] Last Admin: 03/19/18 10:44 Dose: 5 mg Enoxaparin Sodium (Lovenox -) 40 mg SQ DAILY [facility] Last Admin: 03/19/18 10:44 Dose: 40 mg Ceftriaxone Sodium 1 gm/ (Dextrose) 50 mls @ 100 mls/hr IVPB DAILY [facility]; Protocol Last Admin: 03/19/18 10:44 Dose: 100 mls/hr Losartan Potassium (Cozaar -) 100 mg PO DAILY [facility] Last Admin: 03/19/18 10:43 Dose: 100 mg Polyethylene Glycol (Miralax (For Daily Use) -) 17 gm PO DAILY [facility] Last Admin: 03/19/18 10:44 Dose: 17 gm Vital Signs: Vital Signs Period Temp Pulse Resp BP Sys/[place] Pulse Ox Last 24 Hr 97.4 F-98.9 F 77-91 18-18 102-130/51-73 95 Constitutional: Yes: No Distress, Calm Eyes: Yes: Conjunctiva Clear, EOM Intact HENT: Yes: Atraumatic, Normocephalic Neck: Yes: Supple, Trachea Midline Respiratory: Yes: Regular, CTA Bilaterally Gastrointestinal: Yes: Normal Bowel Sounds, Soft Cardiovascular: Yes: Regular Rate and Rhythm JVD: No Carotid Bruit: No PMI: Non-Displaced Heart Sounds: Yes: S1, S2 Musculoskeletal: No: Back Pain Extremities: No: Cold Edema: No Peripheral Pulses WNL: No Peripheral Pulses: 2+ Left Doralis Pedis, 2+ Right Dorsalis Pedis Neurological: Yes: Alert, Oriented Psychiatric: Yes: Alert, Oriented Assessment/Plan EKG: sinus, RBBB, PACs echo 02/2018 LV size, thickness function nl, grade II diastolic dysfunction with elevated LA pressure, moderate aortic sclerosis tele: sinus, PACs syncope - history most likely consistent with vasovagal vs orthostatic - no events on tele - no further cardiac workup at this point diastolic dysfunction grade II - noted on echo - euvolemic on exam - defer diuretics at this point - continue amlodipine, losartan, continue holding home HCTZ in setting of hyponatremia - resolved, continue holding on discharge HTN - stable on amlodipine, losartan; HCTZ stopped for hyponatremia
[2018-03-19] MEDS ORDERED: DEXTROSE 5%-WATER - 50 ML IVPB ONE (10:37)
[2018-03-19] MEDS ORDERED: cefTRIAXone SODIUM 1 GM VIAL ONE (10:37)
[2018-03-19] MEDS: LOSARTAN POTASSIUM 50 MG TABLET (FP) PO SCH (10:43)
[2018-03-19] MEDS: amLODIPine BESYLATE 5 MG TABLET (FP) PO SCH (10:44)
[2018-03-19] MEDS: ENOXAPARIN NA (PORCINE) 40 MG/0.4 ML DISP.SYRIN SQ SCH (10:44)
[2018-03-19] MEDS: POLYETHYLENE GLYCOL 3350 119 GM BTL PO SCH (10:44)
[2018-03-19] MEDS: CEFTRIAXONE 1 GM in DEXTROSE 5%-WATER - 50 ML IVPB SCH (10:44)
--- NOTE | 2018-03-19 11:08 | PN ---
Progress Note, RN INTERVENTIONAL - Note Progress Note: Selected Entries 03/18/18 03/18/18 03/18/18 06:00 10:00 12:46 Breakfast 50% Lunch 0 Supper Temperature 97.3 F L 97.9 F 03/18/18 03/18/18 03/18/18 14:00 15:00 18:50 Breakfast Lunch 50% Supper Temperature 97.4 F L 98.3 F 03/18/18 03/18/18 03/19/18 22:00 22:42 02:00 Breakfast Lunch Supper 25% Temperature 97.7 F 98.9 F 03/19/18 06:00 Breakfast Lunch Supper Temperature 97.6 F Laboratory Tests 03/16/18 03/17/18 03/18/18 22:45 06:00 06:00 WBC 12.1 H 8.3 6.9 03/19/18 06:10 WBC 7.6 Per chart, was reportedly agitated, received Ativan. Today verbal, appropriate, back to baseline.
--- NOTE | 2018-03-19 11:37 | DS ---
Physical Examination Vital Signs: Vital Signs Temperature 97.6 F 03/19/18 06:00 Pulse Rate 77 03/19/18 06:00 Respiratory Rate 18 03/19/18 06:00 Blood Pressure 130/73 03/19/18 06:00 O2 Sat by Pulse Oximetry (%) 95 03/18/18 21:00 Constitutional: Yes: Well Nourished, No Distress, Calm Respiratory: Yes: WNL, Regular, CTA Bilaterally. No: Accessory Muscle Use, SOB , Tachypnea, Wheezes Gastrointestinal: Yes: WNL, Normal Bowel Sounds, Soft, Abdomen, Obese. No: Distention, Tenderness, Vomiting Renal/: Yes: WNL Musculoskeletal: Yes: WNL Extremities: Yes: WNL Edema: No Neurological: Yes: Alert, Oriented, Confusion (intermittent, at baseline), Pre- Existing Deficit Psychiatric: Yes: WNL, Alert, Oriented Labs: CBC, BMP 03/19/18 06:10 03/19/18 06:10 Discharge Summary Reason For Visit: FALL Current Active Problems ANDREW (acute kidney injury) (Acute) Elevated WBCs (Acute) HTN (hypertension) (Acute) Hypokalemia (Acute) Hyponatremia (Acute) Syncope (Acute) Hospital Course: 82 year old female admitted for evaluation for syncopal episode at home. Symptoms consistent w/ possible vasovagal episode 2/2 dehydration. Pt has had reduced po intake for the last few days as well, continued to take losartan/ hctz. Pt found to have ANDREW, hyponatremia, hypokalemia on admission. UC grew ecoli, received 2 days of ceftriaxone, continue keflex x [address]/ carotids neg. Pt noted to be intermittently anxious/confused in the hospital, I spoke with PCP, pt's daughter Aravind who report noticing confusion/anxiety recently , pt was supposed to f/u w/ neurology for dementia work up. Discussed with daughter the importance of close monitoring outpt, vns offered, they refused. ANDREW/hyponatremia - improved s/p ivf . Hypokalemia resolved. Pt ambulating without difficulty. Cardiac echo revealed grade 2 diastolic dysfunction, evaluated by cardiology, no further intervention. Hctz d/c'd to prevent dehydration/orthostatic hypotension. BP has been well controlled w/out hctz here. Pt is medically stable for discharge home. Vitals stable, labs unremarkable. Follow up as directed. 35 minutes spent in discharge planning Condition: Fair - Instructions Diet, Activity, Other Instructions: ambulate, diet as tolerated antibx twice a day x 5 days losartan and amlodipine for bp follow up as directed Referrals: Inés Henriquez MD [Staff Physician] - Javier Rodriguez MD [Staff Physician] - 1 Week Michael Ann MD [Primary Care Provider] - 1 Week Disposition: HOME - Home Medications Comprehensive Discharge Medication List: Ambulatory Orders Amlodipine Besylate [Norvasc -] 5 mg PO DAILY 03/17/18 Cephalexin [Keflex] 500 mg PO BID 5 Days #10 capsule 03/19/18 Losartan Potassium [Cozaar -] 100 mg PO DAILY #30 tablet 03/19/18
[2018-03-19 14:02] VITALS: BP 136/66; PULSE 88; TEMP 97.5
== END 2018-03-19 16:53 | disposition home or self-care (01) ==
LOC: JER 22:11 → JERBED 03-17 00:54 → J4S 03-17 03:40
PROVIDERS: ADMIT Internal Medicine; ATTEND Nurse Practitioner Family
PROC: 3E033NZ Introduction of Analgesics, Hypnotics, Sedatives into Peripheral Vein, Percutaneous Approach (ICD-10-PCS; principal; 2018-03-17)
PROC: 3E0337Z Introduction of Electrolytic and Water Balance Substance into Peripheral Vein, Percutaneous Approach (ICD-10-PCS; 2018-03-17)
PROC: 3E03329 Introduction of Other Anti-infective into Peripheral Vein, Percutaneous Approach (ICD-10-PCS; 2018-03-17)
PROC: 3E013GC Introduction of Other Therapeutic Substance into Subcutaneous Tissue, Percutaneous Approach (ICD-10-PCS; 2018-03-17)
DX: R55 Syncope and collapse (principal); N39.0 Urinary tract infection, site not specified; Z91.81 History of falling; G31.1 Senile degeneration of brain, not elsewhere classified; N17.9 Acute kidney failure, unspecified; E86.0 Dehydration; E87.1 Hypo-osmolality and hyponatremia; E87.8 Other disorders of electrolyte and fluid balance, not elsewhere classified; I10 Essential (primary) hypertension; Z85.3 Personal history of malignant neoplasm of breast; E87.6 Hypokalemia; D72.829 Elevated white blood cell count, unspecified; I45.10 Unspecified right bundle-branch block; I50.30 Unspecified diastolic (congestive) heart failure
CPT/HCPCS: 36415; 70450-TC; 70551-TC; 71045-TC-FY; 72100-TC-FY; 80048; 80053; 82272; 82465; 82550; 82553; 82607; 82728; 82746; 82962; 83036; 83540; 83550; 83605; 83718; 83721; 83880; 83930; 84443; 84478; 84484; 85025; 85610; 86850; 86900; 86901; 87040; 87086; 87186; 93005; 93010; 93306-TC; 93880-TC; 96365; 96366; 96372; 96375; 97116-GP; 97161-GP; 99285-25; G0378; J7030

== ENCOUNTER 2020-09-11 12:55 | Emergency (ER) | payer OTHER ==
[2020-09-11 13:14] VITALS: TEMP 98.6; BMI 18.0
[2020-09-11 14:45] VITALS: BP 151/89; PULSE 81
== END 2020-09-11 14:46 | disposition home or self-care (01) ==
LOC: FER 12:55
DX: S09.90XA Unspecified injury of head, initial encounter (principal)
CPT/HCPCS: 70450-TC; 72125-TC; 81003; 81015; 87086; 99285-25

== ENCOUNTER 2023-02-27 12:30 | Observation (INO) | payer OTHER ==
[2023-02-27 13:34] VITALS: BMI 30.2
[2023-02-27 14:51] LABS: BASO % 0.3 % (0-2.0); EOS % 0.9 % (0-4.5); HEMATOCRIT 32.6 % (32.4-45.2); HEMOGLOBIN 10.5 GM/dL (10.7-15.3); LYMPH % 11.3 % (8-40); MCH 25.7 pg (25.7-33.7); MCHC 32.2 g/dl (32.0-36.0); MEAN CELL VOLUME 79.8 fl (80-96); MEAN PLT VOLUME 7.4 fl (7.5-11.1); MONO % 7.4 % (3.8-10.2); NEUT % 80.1 % (42.8-82.8); PLATELET COUNT 330 10^3/uL (134-434); RBC 4.08 M/mm3 (3.60-5.2); RDW 14.3 % (11.6-15.6); WHITE BLOOD COUNT 12.2 K/mm3 (4.0-10.0)
[2023-02-27 14:52] LABS: PH,URINE 5.5 (5.0-8.0); URINE APPEARANCE CLEAR; URINE BILIRUBIN NEGATIVE (NEGATIVE); URINE COLOR YELLOW; URINE GLUCOSE (UA) NEGATIVE (NEGATIVE); URINE KETONE NEGATIVE (NEGATIVE); URINE LEUK ESTERASE NEGATIVE (NEGATIVE); URINE NITRITE NEGATIVE (NEGATIVE); URINE PROTEIN NEGATIVE (NEGATIVE); URINE UROBILINOGEN 0.2 mg/dL (0.2-1.0)
[2023-02-27] MEDS ORDERED: ACETAMINOPHEN 1000 MG/100 ML BAG IVPB ONE (15:00)
[2023-02-27 15:06] LABS: POTASSIUM 4.5 mmol/L (3.5-5.1)
[2023-02-27 15:08] LABS: CALCIUM 9.4 mg/dL (8.5-10.1)
[2023-02-27 15:09] LABS: ALBUMIN 3.7 g/dl (3.4-5.0); BLOOD UREA NITROGEN 23.6 mg/dL (7-18); MAGNESIUM 2.3 mg/dL (1.8-2.4)
[2023-02-27 15:13] LABS: BILIRUBIN,TOTAL 0.4 mg/dL (0.2-1); TOT PROT 7.6 g/dl (6.4-8.2)
[2023-02-27 15:15] LABS: CREATININE 0.9 mg/dL (0.55-1.3)
[2023-02-27] MEDS ORDERED: ACETAMINOPHEN INJECTION 100 ML IVPB ONE (15:54)
[2023-02-27] MEDS ORDERED: LOSARTAN POTASSIUM 50 MG TABLET PO ONE (18:11)
[2023-02-27] MEDS ORDERED: QUEtiapine FUMARATE 100 MG TABLET (FP) PO ONE (18:11)
[2023-02-27] MEDS ORDERED: DONEPEZIL HCL 10 MG TABLET (FP) PO ONE (18:12)
[2023-02-27] MEDS ORDERED: LOSARTAN POTASSIUM 50 MG TABLET ONE (18:35)
[2023-02-27] MEDS ORDERED: QUEtiapine FUMARATE 25 MG TABLET ONE (18:35)
[2023-02-27] MEDS ORDERED: DONEPEZIL HCL 5 MG TABLET (FP) ONE (18:35)
[2023-02-27] MEDS ORDERED: CLINDAMYCIN 900 MG PREMIX IVPB 900 MG/50 ML BAG IVPB ONE (18:47)
[2023-02-27 19:06] LABS: N-TERMINAL BNP 199.2 pg/ml (5-450)
[2023-02-27] MEDS ORDERED: HALOPERIDOL LACTATE 5 MG/ML IM ONE (19:09)
[2023-02-27] MEDS ORDERED: HALOPERIDOL LACTATE 5 MG/ML IVPUSH ONE (19:10)
[2023-02-27] MEDS ORDERED: HALOPERIDOL LACTATE 5 MG/ML ONE (19:12)
[2023-02-27] MEDS: QUEtiapine FUMARATE 50 MG TABLET PO SCH (21:01)
[2023-02-27] MEDS ORDERED: PATIENT'S OWN MEDICATION (NON-FORMULARY) (Cetirizine Hcl [Zyrtec] 10 MG Tablet) PO SCH (22:00)
[2023-02-27] MEDS ORDERED: PATIENT'S OWN MEDICATION (NON-FORMULARY) (Donepezil Hcl [Donepezil Hcl] 23 MG Tablet) PO SCH (22:00)
[2023-02-27] MEDS ORDERED: DONEPEZIL HCL 10 MG TABLET (FP) PO SCH (22:00)
[2023-02-27] MEDS ORDERED: LORATADINE 10 MG TABLET PO SCH (22:00)
[2023-02-28] MEDS ORDERED: CLINDAMYCIN 600MG PREMIX IVPB 600 MG/50 ML BAG IVPB SCH (02:00)
[2023-02-28] MEDS ORDERED: CLINDAMYCIN 600MG PREMIX IVPB 600 MG/50 ML BAG IVPB ONE (02:12)
[2023-02-28 06:17] VITALS: RESP 18
[2023-02-28 08:28] LABS: HEMATOCRIT 33.4 % (32.4-45.2); MCH 26.2 pg (25.7-33.7); MCHC 33.1 g/dl (32.0-36.0); MEAN CELL VOLUME 79.3 fl (80-96); MEAN PLT VOLUME 7.2 fl (7.5-11.1); PLATELET COUNT 340 10^3/uL (134-434); RBC 4.21 M/mm3 (3.60-5.2); RDW 14.2 % (11.6-15.6); WHITE BLOOD COUNT 10.6 K/mm3 (4.0-10.0)
[2023-02-28 08:52] LABS: POTASSIUM 4.2 mmol/L (3.5-5.1)
[2023-02-28 08:55] LABS: CALCIUM 9.2 mg/dL (8.5-10.1)
[2023-02-28 08:56] LABS: BLOOD UREA NITROGEN 15.3 mg/dL (7-18)
[2023-02-28 08:59] LABS: CREATININE 0.7 mg/dL (0.55-1.3)
[2023-02-28] MEDS: QUEtiapine FUMARATE 50 MG TABLET PO SCH (09:29)
[2023-02-28] MEDS ORDERED: amLODIPine BESYLATE 5 MG TABLET (FP) PO SCH (10:00)
[2023-02-28] MEDS ORDERED: ENOXAPARIN NA (PORCINE) 40 MG/0.4 ML DISP.SYRIN SQ SCH (10:00)
[2023-02-28] MEDS ORDERED: LOSARTAN POTASSIUM 50 MG TABLET PO SCH (10:00)
[2023-02-28] MEDS ORDERED: PATIENT'S OWN MEDICATION (NON-FORMULARY) (Losartan Potassium [Losartan Potassium] 100 MG T PO SCH (10:00)
[2023-02-28 18:54] VITALS: BP 128/76; PULSE 94; TEMP 98.7
== END 2023-02-28 18:56 | disposition home or self-care (01) ==
LOC: JER 12:30 → JERBED 18:18 → UNDOADMOB 18:18 → OBSVTOIN 20:53 → INTOOBSV 20:53 → JERBED 02-28 05:34 → J6S 02-28 05:34 → JERBED 02-28 13:43 → J6S 02-28 13:43
PROVIDERS: ADMIT Internal Medicine; ATTEND Internal Medicine
PROC: 3E033NZ Introduction of Analgesics, Hypnotics, Sedatives into Peripheral Vein, Percutaneous Approach (ICD-10-PCS; principal; 2023-02-28)
PROC: 3E03329 Introduction of Other Anti-infective into Peripheral Vein, Percutaneous Approach (ICD-10-PCS; 2023-02-28)
PROC: 3E023GC Introduction of Other Therapeutic Substance into Muscle, Percutaneous Approach (ICD-10-PCS; 2023-02-28)
PROC: 3E033GC Introduction of Other Therapeutic Substance into Peripheral Vein, Percutaneous Approach (ICD-10-PCS; 2023-02-28)
DX: Z85.3 Personal history of malignant neoplasm of breast (principal); F03.90 Unspecified dementia, unspecified severity, without behavioral disturbance, psychotic disturbance, mood disturbance, and anxiety; I10 Essential (primary) hypertension; R55 Syncope and collapse; W18.39XA Other fall on same level, initial encounter; Y93.89 Activity, other specified; Y92.89 Other specified places as the place of occurrence of the external cause; Z29.89 Encounter for other specified prophylactic measures
CPT/HCPCS: 0241U-QW; 36415; 70450-TC; 71045-TC-FY; 72170-TC-FY; 72192-TC; 73521-TC-FY; 73700-TC-RT; 80048; 80053; 81003; 83735; 83880; 84484; 85025; 85027; 87086; 93005; 93010; 93971-TC; 96365; 96366; 96372; 96375; 97116-GP; 97162-GP; 99285-25; G0378

== ENCOUNTER 2023-04-27 11:35 | Inpatient (IN) | payer OTHER ==
[2023-04-27 13:06] LABS: BASO % 0.9 % (0-2.0); EOS % 3.3 % (0-4.5); HEMATOCRIT 32.9 % (32.4-45.2); HEMOGLOBIN 11.1 GM/dL (10.7-15.3); MCH 25.6 pg (25.7-33.7); MCHC 33.8 g/dl (32.0-36.0); MEAN CELL VOLUME 75.8 fl (80-96); MEAN PLT VOLUME 6.8 fl (7.5-11.1); MONO % 8.3 % (3.8-10.2); NEUT % 68.5 % (42.8-82.8); PLATELET COUNT 277 10^3/uL (134-434); RBC 4.34 M/mm3 (3.60-5.2); RDW 15.5 % (11.6-15.6); WHITE BLOOD COUNT 5.6 K/mm3 (4.0-10.0)
[2023-04-27 13:11] LABS: EPI CELLS 7 /uL (0-25.1); HYALINE CASTS 0 /uL (0-3.1); URINE APPEARANCE TURBID; URINE BACTERIA >9,000 /uL (0-1359); URINE BILIRUBIN NEGATIVE (NEGATIVE); URINE COLOR YELLOW; URINE GLUCOSE (UA) NEGATIVE (NEGATIVE); URINE KETONE NEGATIVE (NEGATIVE); URINE LEUK ESTERASE 3+ (NEGATIVE); URINE NITRITE POSITIVE (NEGATIVE); URINE PROTEIN NEGATIVE (NEGATIVE); URINE RBC 22 /uL (0-23.9); URINE UROBILINOGEN 0.2 mg/dL (0.2-1.0); URINE WBC 2419 /uL (0-25.8)
[2023-04-27 13:13] LABS: INR 1.03 (0.83-1.09)
[2023-04-27 13:16] LABS: ACTIVATED PTT 33.1 SECONDS (25.2-36.5)
[2023-04-27 13:32] LABS: ALBUMIN 3.4 g/dl (3.4-5.0); BILIRUBIN,TOTAL 0.4 mg/dL (0.2-1); BLOOD UREA NITROGEN 17.7 mg/dL (7-18); CALCIUM 9.6 mg/dL (8.5-10.1); CREATININE 0.9 mg/dL (0.55-1.3); N-TERMINAL BNP 509.7 pg/ml (5-450); POTASSIUM 4.2 mmol/L (3.5-5.1); TOT PROT 7.6 g/dl (6.4-8.2)
[2023-04-27] MEDS: CEFTRIAXONE 1 GM in DEXTROSE 5%-WATER - 100 ML IVPB ONE (14:22)
[2023-04-27] MEDS ORDERED: CEFTRIAXONE 1 GM/50 ML BAG ONE (14:23)
[2023-04-28] MEDS: ENOXAPARIN NA (PORCINE) 40 MG/0.4 ML DISP.SYRIN SQ SCH (10:11)
[2023-04-28] MEDS: QUEtiapine FUMARATE 25 MG TABLET PO SCH (10:11)
[2023-04-28] MEDS: CEFTRIAXONE 1 GM in DEXTROSE 5%-WATER - 50 ML IVPB SCH (10:11)
[2023-04-28] MEDS: LORATADINE 10 MG TABLET PO SCH (10:12)
[2023-04-28] MEDS: DONEPEZIL HCL 10 MG TABLET (FP) PO SCH (10:12)
[2023-04-28] MEDS: LOSARTAN POTASSIUM 50 MG TABLET PO SCH (10:12)
[2023-04-28] MEDS: CARVEDILOL 6.25 MG TABLET (FP) PO SCH (10:12)
[2023-04-29] MEDS: MEROPENEM 1 GM in DEXTROSE 5%-WATER 100 ML IVPB SCH ×3 (10:35→18:12)
[2023-04-29 11:14] LABS: BASO % 0.6 % (0-2.0); EOS % 3.4 % (0-4.5); HEMATOCRIT 32.3 % (32.4-45.2); LYMPH % 25.7 % (8-40); MCH 25.9 pg (25.7-33.7); MEAN CELL VOLUME 76.2 fl (80-96); MEAN PLT VOLUME 7.3 fl (7.5-11.1); MONO % 10.7 % (3.8-10.2); NEUT % 59.6 % (42.8-82.8); PLATELET COUNT 281 10^3/uL (134-434); RBC 4.24 M/mm3 (3.60-5.2); RDW 15.6 % (11.6-15.6); WHITE BLOOD COUNT 6.3 K/mm3 (4.0-10.0)
[2023-04-29] MEDS: ACETAMINOPHEN 500 MG TABLET (FP) PO SCH (11:23)
[2023-04-29] MEDS: LIDOCAINE 4% PATCH TP SCH (11:24)
[2023-04-29 11:57] LABS: ALBUMIN 3.3 g/dl (3.4-5.0); BLOOD UREA NITROGEN 16.5 mg/dL (7-18)
[2023-04-29 12:02] LABS: BILIRUBIN,TOTAL 0.4 mg/dL (0.2-1)
[2023-04-29] MEDS: LIDOCAINE PATCH REMOVAL MC SCH (21:45)
[2023-05-01] MEDS ORDERED: ACETAMINOPHEN 500 MG TABLET (FP) PO PRN (07:43)
[2023-05-01 10:02] LABS: BASO % 0.7 % (0-2.0); EOS % 6.5 % (0-4.5); HEMATOCRIT 33.5 % (32.4-45.2); HEMOGLOBIN 11.1 GM/dL (10.7-15.3); LYMPH % 25.4 % (8-40); MCH 25.3 pg (25.7-33.7); MEAN CELL VOLUME 76.7 fl (80-96); MEAN PLT VOLUME 7.3 fl (7.5-11.1); MONO % 12.3 % (3.8-10.2); NEUT % 55.1 % (42.8-82.8); PLATELET COUNT 270 10^3/uL (134-434); RBC 4.37 M/mm3 (3.60-5.2); RDW 15.2 % (11.6-15.6); WHITE BLOOD COUNT 5.4 K/mm3 (4.0-10.0)
[2023-05-01 10:16] LABS: POTASSIUM 3.8 mmol/L (3.5-5.1)
[2023-05-01 10:20] LABS: BLOOD UREA NITROGEN 19.5 mg/dL (7-18); CALCIUM 8.7 mg/dL (8.5-10.1)
[2023-05-01 10:23] LABS: CREATININE 0.9 mg/dL (0.55-1.3)
[2023-05-01 10:25] LABS: BILIRUBIN,TOTAL 0.5 mg/dL (0.2-1); TOT PROT 6.6 g/dl (6.4-8.2)
[2023-05-02 09:59] LABS: HEMATOCRIT 36.7 % (32.4-45.2); MCH 25.1 pg (25.7-33.7); MCHC 32.8 g/dl (32.0-36.0); MEAN CELL VOLUME 76.4 fl (80-96); PLATELET COUNT 333 10^3/uL (134-434); RDW 15.7 % (11.6-15.6); WHITE BLOOD COUNT 8.3 K/mm3 (4.0-10.0)
[2023-05-02] MEDS: MEROPENEM 1 GM in DEXTROSE 5%-WATER 100 ML IVPB SCH (10:20)
[2023-05-02] MEDS: ERTAPENEM SODIUM 1 GM in SODIUM CHLORIDE 50 ML IVPB SCH (15:40)
[2023-05-03 16:36] VITALS: BMI 27.9
[2023-05-04 10:16] LABS: BASO % 0.9 % (0-2.0); EOS % 5.6 % (0-4.5); HEMATOCRIT 36.9 % (32.4-45.2); HEMOGLOBIN 12.2 GM/dL (10.7-15.3); LYMPH % 22.8 % (8-40); MCH 25.5 pg (25.7-33.7); MEAN CELL VOLUME 77.2 fl (80-96); MEAN PLT VOLUME 7.1 fl (7.5-11.1); MONO % 9.1 % (3.8-10.2); NEUT % 61.6 % (42.8-82.8); PLATELET COUNT 305 10^3/uL (134-434); RBC 4.79 M/mm3 (3.60-5.2); RDW 16.1 % (11.6-15.6); WHITE BLOOD COUNT 6.2 K/mm3 (4.0-10.0)
[2023-05-04 10:21] LABS: HEMATOCRIT 36.2 % (32.4-45.2); HEMOGLOBIN 12.1 GM/dL (10.7-15.3); MCH 25.6 pg (25.7-33.7); MCHC 33.4 g/dl (32.0-36.0); MEAN CELL VOLUME 76.7 fl (80-96); MEAN PLT VOLUME 7.1 fl (7.5-11.1); PLATELET COUNT 302 10^3/uL (134-434); RBC 4.72 M/mm3 (3.60-5.2); RDW 15.8 % (11.6-15.6); WHITE BLOOD COUNT 6.1 K/mm3 (4.0-10.0)
[2023-05-04 10:35] LABS: POTASSIUM 4.1 mmol/L (3.5-5.1)
[2023-05-04 10:37] LABS: CALCIUM 9.2 mg/dL (8.5-10.1)
[2023-05-04 10:38] LABS: BLOOD UREA NITROGEN 22.6 mg/dL (7-18)
[2023-05-04 10:39] LABS: ALBUMIN 3.4 g/dl (3.4-5.0)
[2023-05-04 10:41] LABS: CREATININE 0.8 mg/dL (0.55-1.3)
[2023-05-04 10:43] LABS: BILIRUBIN,TOTAL 0.6 mg/dL (0.2-1); TOT PROT 7.2 g/dl (6.4-8.2)
[2023-05-10 04:37] VITALS: RESP 18
[2023-05-10 11:07] VITALS: BP 118/71; PULSE 66; TEMP 97.9
== END 2023-05-10 11:50 | DRG 689 ==
LOC: JER 11:35 → JERBED 17:04 → OBSVTOIN 19:53 → JERBED 19:53 → J6S 04-28 00:08
PROVIDERS: ADMIT Internal Medicine; ATTEND Internal Medicine
DX: N39.0 Urinary tract infection, site not specified (principal); G93.41 Metabolic encephalopathy; F02.811 Dementia in other diseases classified elsewhere, unspecified severity, with agitation; I50.32 Chronic diastolic (congestive) heart failure; I11.0 Hypertensive heart disease with heart failure; G30.9 Alzheimer's disease, unspecified; M25.551 Pain in right hip; B35.1 Tinea unguium; B96.20 Unspecified Escherichia coli [E. coli] as the cause of diseases classified elsewhere
CPT/HCPCS: 0241U-QW; 36415; 70450-TC; 71045-TC-FY; 73521-TC-FY; 80048; 80053; 81003; 82962; 83880; 84484; 85025; 85027; 85610; 85730; 87086; 87186; 93005; 93010; 97116-GP; 97162-GP; 99285-25; G0378